=== PATIENT | male | born 1950 | race Caucasian/White ===

== ENCOUNTER → 2017-08-03 | Outpatient (CLI) | payer BC ==
[~2017-08-03] MED LIST: ALBUAER2 INH; ASPEC81; CHOL100010 PO; CPAP; MULT-506 PO
[2017-08-03 12:46] LABS: BASO % 0.4 %; BASO ABS # 0.02 K/uL (0-0.2); COMPLETE YES; EOS % 2.2 %; HEMATOCRIT 41.2 % (42-52); IG% 0.2 %; LYMPH % 33.7 %; LYMPH ABS # 1.72 K/uL (1.2-3.4); MEAN CELL VOLUME 94.1 fL (80-100); MEAN CORPUSCULAR HEMOGLOBIN 31.5 pg (25-34); MEAN CORPUSCULAR HGB CONC 33.5 g/dl (32-36); MEAN PLATELET VOLUME 10.3 fL (7.4-10.4); NEUT % 54.5 %; PLATELET COUNT 315 K/uL (130-400); RED BLOOD COUNT 4.38 M/uL (4.7-6.1); WHITE BLOOD COUNT 5.11 K/uL (4.8-10.8)
[2017-08-03 13:13] LABS: ALT/SGPT 27 U/L (12-78); AST/SGOT 18 U/L (15-37); BLOOD UREA NITROGEN 20 mg/dl (7-18); BUN/CREATININE RATIO 26.7 (10-20); CALCIUM 8.8 mg/dl (8.5-10.1); CARBON DIOXIDE 26 mmol/L (21-32); CHLORIDE 110 mmol/L (98-107); CREATININE 0.76 mg/dl (0.60-1.40); GLUCOSE 84 mg/dl (70-99); SODIUM 141 mmol/L (136-145)
[2017-08-03 13:16] LABS: ALB/GLOB RATIO 1.2 (0.9-2); ALKALINE PHOSPHATASE 52 U/L (45-117)
== END | disposition home or self-care (01) ==
LOC: C.LAB 11:05
PROVIDERS: ATTEND Internal Medicine Hematology & Oncology
DX: C34.31 Malignant neoplasm of lower lobe, right bronchus or lung (principal)

== ENCOUNTER → 2017-08-09 | Outpatient (CLI) | payer BC ==
[~2017-08-09] MED LIST changes: +OPTIRAY 320 IV PRN
--- NOTE | 2017-08-09 14:02 | DIAGNOSTIC IMAGING REPORT ---
(CHEST) THORAX WITH CLINICAL HISTORY: 66 years-old Male presenting with NON SMALL CELL LUNG CA. TECHNIQUE: Multidetector CT imaging of the chest was performed after the administration of intravenous contrast. IV contrast: 93 mL of Optiray 320. A dose lowering technique was used consistent with the principles of ALARA (as low as reasonably achievable). COMPARISON: 01/24/2015. CT DOSE (mGy.cm): The estimated cumulative dose is 530.01 mGy.cm. FINDINGS: [employer] topogram: Unremarkable. On soft tissue windows, normal thyroid and thoracic inlet. Prominent right axillary lymph nodes slightly increased in size from prior exam. An index node immediately lateral to the margin of the pectoralis minor measures 10 mm in the short axis, previously 5 mm (series 4 image 99). An enlarged lymph node medial to the margin of the right pectoralis minor measures 9 mm in the short axis, previously 4 mm (series 4 image 52). Scattered subcentimeter mediastinal lymph nodes are unchanged. No hilar lymphadenopathy. Normal aorta. Normal heart size. No pericardial or pleural effusion. A gallstone is noted at the gallbladder neck. On lung windows, postsurgical changes of right lower lobectomy. Old calcified granuloma noted at the right apex. Architectural distortion and minimal bandlike opacities in the right middle lobe, likely scarring. Scarring also suggested in the lingula and minimally at the left lung base. Stable 3 mm nodule in the periphery of the left lower lobe (series 4 image 173). No new pulmonary nodule. Postsurgical changes of the right lower lobe bronchus. Remaining airways patent. On bone windows, degenerative changes of the spine. No destructive osseous lesion. IMPRESSION: 1. Stable 3 mm nodule in the left lower lobe. No new pulmonary nodule. 2. Increased size of right axillary lymphadenopathy, concerning for progression of disease. 3. Postsurgical changes of right lower lobectomy. Electronically signed by: Severo Monahan M.D. 08/09/2017 2:00 PM Dictated Date/Time: 08/09/2017 1:53 PM
== END | disposition home or self-care (01) ==
LOC: C.CTS 13:33
PROVIDERS: ATTEND Internal Medicine Hematology & Oncology
DX: C34.31 Malignant neoplasm of lower lobe, right bronchus or lung (principal); R91.1 Solitary pulmonary nodule; R59.0 Localized enlarged lymph nodes; Z90.2 Acquired absence of lung [part of]

== ENCOUNTER → 2017-10-11 | Outpatient (CLI) | payer BC ==
[~2017-10-11] MED LIST changes: -OPTIRAY 320 IV PRN
--- NOTE | 2017-10-11 09:35 | DIAGNOSTIC IMAGING REPORT ---
CHEST 2 VIEWS ROUTINE CLINICAL HISTORY: 66 years-old Male presenting with R06.02 shortness of breath. TECHNIQUE: PA and lateral views of the chest were obtained. COMPARISON: 02/07/2017. FINDINGS: Atherosclerosis of aortic arch. Cardiac silhouette normal in size. A more linear opacity in the left lung base. Otherwise lungs lungs clear. Trace right pleural effusion. No pneumothorax. Osseous structures normal. Upper abdomen normal. IMPRESSION: 1. Trace right pleural effusion. 2. Linear opacity at the left lung base likely atelectasis or scarring. Electronically signed by: Severo Monahan M.D. 10/11/2017 9:33 AM Dictated Date/Time: 10/11/2017 9:32 AM
== END | disposition home or self-care (01) ==
LOC: C.RAD1850 09:24
PROVIDERS: ATTEND Family Medicine
DX: R06.02 Shortness of breath (principal); R91.8 Other nonspecific abnormal finding of lung field

== ENCOUNTER → 2017-10-31 | Outpatient (CLI) | payer BC | END | disposition home or self-care (01) | LOC: C.RC 11:31 | PROVIDERS: ATTEND Family Medicine | DX: R06.02 Shortness of breath (principal) ==

== ENCOUNTER → 2017-11-14 | Outpatient (CLI) | payer BC ==
[~2017-11-14] MED LIST changes: +OPTIRAY 320 IV PRN
--- NOTE | 2017-11-14 09:43 | DIAGNOSTIC IMAGING REPORT ---
CT SCAN OF THE CHEST WITH IV CONTRAST CLINICAL HISTORY: Non-small cell lung cancer follow-up. COMPARISON STUDY: Chest CT scans dated 08/09/2017 and 02/16/2014. TECHNIQUE: Following the IV administration of 94 cc of Optiray 320, CT scan of the thorax was performed from the thoracic inlet to the upper abdomen. Images are reviewed in the axial, sagittal, and coronal planes. IV contrast was administered without complication. A dose lowering technique was utilized adhering to the principles of ALARA. CT DOSE: 501.32 mGy.cm FINDINGS: Thyroid: Imaged portions of the thyroid gland are normal in size and attenuation. Thoracic aorta: The thoracic aorta is normal in caliber and demonstrates bovine variant arch anatomy. No dissection is seen. Pulmonary vasculature: The pulmonary trunk is dilated, measuring 3.2 cm in diameter. This suggests pulmonary artery hypertension. There are no filling defects identified in the central pulmonary vessels to indicate pulmonary embolus. Note that this examination was not protocoled for evaluation of the pulmonary arteries. Heart: The heart is enlarged and without pericardial effusion. The coronary arteries are densely calcified. Lungs and pleural spaces: Mild emphysema is noted. Again seen are postoperative changes from right lower lobe resection. No airspace consolidation is seen typical for pneumonia. Trace pleural fluid at the right lung base is likely on a postoperative basis. Scattered calcified granulomas are observed. Linear atelectasis versus scarring is seen at the left lung base. A 3 mm nodule in the left lower lobe seen on image #193 is unchanged dating back to 2013 and of doubtful significance. Mediastinum: There is no mediastinal lymphadenopathy. Mariel: Clear. Axillae: There are shotty right axillary and subpectoral lymph nodes which measure up to 1.5 cm in length. Upper abdomen: There is a tiny hiatal hernia. A calcified gallstone is identified. The liver demonstrates diminished attenuation suggesting steatosis. Colonic fecal retention is observed. Skeletal structures: The skeletal structures are osteopenic. Degenerative change is seen throughout the thoracic spine and the shoulders. No lytic or blastic bony lesions are seen. IMPRESSION: 1. Mild emphysema with postoperative changes from right lower lobe resection. 2. There is no evidence of recurrent pulmonary lesion or mediastinal lymphadenopathy. 3. No airspace consolidation is identified. Trace pleural fluid at the right lung base is likely on a postoperative basis. 4. Mildly enlarged right axillary and subpectoral lymph nodes are similar to the 08/09/2017 examination. These are pathologically indeterminant, but would be atypical for pulmonary metastatic disease. Neoplasm is not excluded. 5. Cardiomegaly. 6. Cholelithiasis. 7. Additional findings as above. Electronically signed by: Kyle Castro M.D. 11/14/2017 9:42 AM Dictated Date/Time: 11/14/2017 9:25 AM
[2017-11-14 09:45] LABS: BASO % 0.6 %; BASO ABS # 0.03 K/uL (0-0.2); EOS % 2.4 %; EOS ABS # 0.13 K/uL (0-0.5); HEMATOCRIT 42.8 % (42-52); HEMOGLOBIN 14.3 g/dL (14.0-18.0); IG# 0.01 K/uL (0.00-0.02); LYMPH % 27.9 %; LYMPH ABS # 1.52 K/uL (1.2-3.4); MEAN CELL VOLUME 93.9 fL (80-100); MEAN CORPUSCULAR HEMOGLOBIN 31.4 pg (25-34); MEAN CORPUSCULAR HGB CONC 33.4 g/dl (32-36); MEAN PLATELET VOLUME 9.8 fL (7.4-10.4); MONO % 7.2 %; MONO ABS # 0.39 K/uL (0.11-0.59); NEUT % 61.7 %; NEUT ABS # 3.36 K/uL (1.4-6.5); PLATELET COUNT 310 K/uL (130-400); RED CELL DISTRIBUTION WIDTH SD 44.9 fL (36.4-46.3); WHITE BLOOD COUNT 5.44 K/uL (4.8-10.8)
[2017-11-14 10:21] LABS: ALBUMIN 3.7 gm/dl (3.4-5.0); ALT/SGPT 33 U/L (12-78); AST/SGOT 19 U/L (15-37); BLOOD UREA NITROGEN 18 mg/dl (7-18); CALCIUM 8.9 mg/dl (8.5-10.1); CARBON DIOXIDE 27 mmol/L (21-32); CREATININE 0.91 mg/dl (0.60-1.40); GLUCOSE 103 mg/dl (70-99); POTASSIUM 4.1 mmol/L (3.5-5.1); SODIUM 140 mmol/L (136-145)
[2017-11-14 10:23] LABS: ALKALINE PHOSPHATASE 49 U/L (45-117); TOTAL PROTEIN 7.2 gm/dl (6.4-8.2)
== END | disposition home or self-care (01) ==
LOC: C.CTS 08:52
PROVIDERS: ATTEND Internal Medicine Hematology & Oncology
DX: C34.31 Malignant neoplasm of lower lobe, right bronchus or lung (principal); J43.9 Emphysema, unspecified; I51.4 Myocarditis, unspecified; K80.20 Calculus of gallbladder without cholecystitis without obstruction; Z90.2 Acquired absence of lung [part of]